=== PATIENT | female | born 1955 | race Caucasian/White ===

== ENCOUNTER 2020-03-18 21:55 | Observation (INO) | payer MEDICAID, SELFPAY ==
[2020-03-18 21:47] VITALS: BMI 30.7
--- NOTE | 2020-03-18 21:50 | ECG_ITS ---
APPROVED REPORT Exam: Resting ECG HR:78 bpm ECG Measurements Heart Rate 78 AXES OK 166 P 72 QRSd 88 QRS 23 QT 422 T 67 QTc 481 <Conclusion> Normal sinus rhythm Normal ECG Electronically signed by : Keith Ojeda, 03/21/2020 14:08:08
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
[2020-03-18 21:59] VITALS: BP 142/84; PULSE 88; RESP 16; TEMP 36.6; O2SAT 98
--- NOTE | 2020-03-18 22:04 | PC.NURSE ---
Pt to CT at this time. MD at the bedside pt upon arrival.
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
[2020-03-18 22:28] LABS: Basophils # 0.1 K/mm3 (0-0.2); Basophils % 0.6 % (0.1-2.0); Eosinophils # 0.1 K/mm3 (0.0-0.4); Eosinophils % 0.6 % (0.1-12.0); Hematocrit 36.3 % (37.0-47.0); Hemoglobin 12.4 g/dL (12.2-16.2); Lymphocytes # 1.2 K/mm3 (0.7-4.5); Lymphocytes % 15.1 % (10-50); Mean Corpuscular HGB Conc 34.1 g/dL (31.8-35.4); Mean Corpuscular Hemoglobin 30.5 pg (27.0-31.2); Mean Corpuscular Volume 89.6 fl (81-99); Mean Platelet Volume 8.8 fl (7.4-10.4); Monocytes # 0.4 K/mm3 (0.1-1.0); Neutrophils # 6.1 K/mm3 (1.8-7.8); Neutrophils % 78.7 % (37.0-80.0); Platelet Count 131 K/mm3 (142-424); Red Blood Count 4.06 M/mm3 (4.20-5.40); Red Cell Distribution Width 13.2 % (11.5-17.5); White Blood Count 7.8 K/mm3 (4.8-10.8)
[2020-03-18 22:30] VITALS: BP 139/74; PULSE 80; RESP 16; O2SAT 97
[2020-03-18 22:32] LABS: Alanine Aminotransferase 131 U/L (12-78); Albumin Level 3.7 g/dl (3.5-5.0); Alkaline Phosphatase 83 U/L (38-126); Amylase 56 U/L (30-110); Anion Gap 12.2 mEq/L (5-15); Aspartate Amino Transferase 235 U/L (14-36); Bilirubin,Direct 0.1 mg/dl (0.0-0.4); Bilirubin,Indirect 0.4 mg/dL (0.0-0.9); Bilirubin,Total 0.5 mg/dl (0.2-1.3); Bilirubin,Unconjugated 0.4 mg/dL (0.0-1.1); Blood Urea Nitrogen 23 mg/dl (7-17); Calcium 9.1 mg/dl (8.4-10.2); Carbon Dioxide 21 mmol/L (22.0-30.0); Chloride 107 mmol/L (98-107); Creatinine Clearance Estimated 75 mL/min (50-200); Estimated Glomerular Filt Rate 63 ml/min (>60); GFR (African American) 76 ML/MIN (>60); Glucose 274 mg/dl (74-100); Lipase 79 U/L (23-300); Potassium 4.2 mmoL/L (3.5-5.1); Sodium 136 mmol/L (136-145); Total Protein,Serum 6.9 g/dl (6.3-8.2)
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
[2020-03-18 22:45] VITALS: BP 132/72; PULSE 80; RESP 16; O2SAT 99
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
--- NOTE | 2020-03-18 22:59 | PC.NURSE ---
speaking to alberto
[2020-03-18 23:01] VITALS: BP 125/68; PULSE 82; RESP 20; O2SAT 100
--- NOTE | 2020-03-18 23:03 | PC.NURSE ---
pt return from ct. 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
--- NOTE | 2020-03-18 23:03 | PC.NURSE ---
pt back from xr
--- NOTE | 2020-03-18 23:25 | PC.NURSE ---
pt voided per bedpan.dark yellow urine
[2020-03-18 23:34] VITALS: BP 145/78; PULSE 77; RESP 18; O2SAT 98
[2020-03-18 23:53] VITALS: BP 161/88; PULSE 75; RESP 18; TEMP 36.6; O2SAT 98
[2020-03-19] VITALS: BP 146/70; PULSE 66; RESP 16; TEMP 36.6; O2SAT 99; BMI 25.0
--- NOTE | 2020-03-19 00:12 | PC.NURSE ---
PT ARRIVED TO THE FLOOR VIA W/C FROM ED @ 0012.
[2020-03-19 04:00] VITALS: BP 126/73; PULSE 67; RESP 16; TEMP 36.7; O2SAT 98
--- NOTE | 2020-03-19 04:10 | PC.NURSE ---
A&O X4. PT C/O MODERATE PAIN TO RIGHT ELBOW AND RIGHT HIP, RATING PAIN AT MOST A 9/10 ON PAIN SCALE THIS SHIFT. ADMINISTERED MORPHINE X1 PER MAR THUS FAR AND TYLENOL X1 FOR PAIN RELIEF. WITH MEDICATION ADMIN PT VERBALIZES ADEQUATE PAIN RELIEF. MULTIPLE ABRASIONS AND LACERATIONS NOTED TO BODY, PICTURES ON CHART. CONSENT SIGNED BY PT PRIOR TO OBTAINING PICTURES. PT ABLE TO INDEPENDENTLY AMB TO AND FROM BATHROOM. THIS RN ENCOURAGED USE OF STAFF STANDBY ASSIST FOR AMBULATION. TOLERATES AMBULATION WELL. PT TOLERATING RA WELL WITH NO C/O SOA. PT STATES WITH DEEP BREATHING PAIN IS NOTED ON RIGHT SIDE FLANK REGION. BILATERAL BREATH SOUNDS NOTED CLEAR T/O. CONTINUOUS PULSE OX MONITORING THIS SHIFT. O2 RANGE NOTED BETWEEN 98-100% RA. NO EDEMA NOTED. VSS. REMAINS SAFE. CALL LIGHT WITHIN REACH. WILL CONTINUE TO MONITOR. PT UNABLE TO PROVIDE ACCURATE DAILY MEDICATIONS LIST FOR MED REC UPON ADMISSION. PT STATES HER CAN BE CALLED AROUND 6 AM AND HE WILL BE ABLE TO PROVIDE A LIST OF HER DAILY MEDICATIONS FOR THIS RN. PT STATES SHE TAKES THREE DAILY: ONE FOR THYROID, ONE FOR SUGAR, AND ONE FOR B/P .
[2020-03-19 04:15] LABS: Microscopic, Urine URINE MICROSCOPIC (MICROSCOPIC)
[2020-03-19 04:25] LABS: Appearance,Urine CLEAR (Clear); Bilirubin,Urine Negative (Negative); Blood, Urine TRACE-L (Negative); Color,Urine YELLOW (Yellow); Glucose,Urine (UA) 1+ (Negative); Ketones,Urine Negative (Negative); Leukocyte Esterase,Urine Negative (Negative); Nitrate,Urine Negative (Negative); PH,Urine 5.5 (5.0-8.5); Protein,Urine Negative (Negative); Specific Gravity, Urine 1.015 (1.005-1.030); Urobilinogen,Urine 0.2 EU/dl (0.2)
[2020-03-19 04:28] LABS: WBC,Urine Occasional #/hpf (0-3)
[2020-03-19 05:53] LABS: POC Glucose,Bedside 220 (70-110)
--- NOTE | 2020-03-19 06:11 | PC.NURSE ---
WAS ABLE TO PROVIDE PT'S DAILY MEDICATION NAMES AND DOSAGES VIA TELEPHONE THIS AM WITH THIS RN. MED REC COMPLETE.
--- NOTE | 2020-03-19 07:00 | XR_ITS ---
PROCEDURE: XR CHEST PORTABLE CLINICAL HISTORY: pxt COMPARISON: CT ANGIO CHEST from 03/18/2020 XR CHEST PORTABLE from 03/18/2020 FINDINGS: The cardiomediastinal silhouette and pulmonary vascularity are within normal limits. There is persistent ill-defined opacity at the left costophrenic angle likely representing atelectasis. Otherwise both lung reina are clear of infiltrate. There is no visible pneumothorax, the pneumothorax seen on the CC scan was extremely tiny and likely below resolution on standard chest film. No acute bony abnormalities. IMPRESSION: Persistent ill-defined opacity left costophrenic angle likely representing postinflammatory scarring and or atelectasis otherwise unremarkable chest Dictated by: Dr. David Leblanc MD 03/19/2020 13:[address] David Leblanc MD in [place] 03/19/2020 13:57
[2020-03-19 07:17] VITALS: BP 118/74; PULSE 60; RESP 18; TEMP 36.6; O2SAT 97
[2020-03-19 07:37] LABS: Chloride 113 mmol/L (98-107); Sodium 139 mmol/L (136-145)
[2020-03-19 07:38] LABS: Potassium 4.2 mmoL/L (3.5-5.1)
[2020-03-19 07:40] LABS: Alanine Aminotransferase 130 U/L (12-78); Alkaline Phosphatase 74 U/L (38-126); Anion Gap 9.2 mEq/L (5-15); Aspartate Amino Transferase 156 U/L (14-36); Bilirubin,Total 0.7 mg/dl (0.2-1.3); Blood Urea Nitrogen 16 mg/dl (7-17); Carbon Dioxide 21 mmol/L (22.0-30.0); Creatinine Clearance Estimated 61 mL/min (50-200); Estimated Glomerular Filt Rate 72 ml/min (>60); GFR (African American) 87 ML/MIN (>60)
[2020-03-19 07:41] LABS: Albumin Level 3.6 g/dl (3.5-5.0); Albumin/Globulin Ratio 1.2 (1.1-1.8); Glucose 206 mg/dl (74-100); Total Protein,Serum 6.6 g/dl (6.3-8.2)
[2020-03-19 07:48] LABS: Calcium 8.1 mg/dl (8.4-10.2)
--- NOTE | 2020-03-19 09:16 | P.CONPHA_ITS ---
[facility] Pharmacy VTE Monitoring - Patient Demographics Admission date: 03/19/20 Report Date: 03/19/20 Time: 09:16 Allergies/Adverse Reactions: Patient Allergies No Known Allergies Allergy (Verified 03/18/20 21:50) Height: 1.65 m Weight: 68.039 kg Patient Problems: Current Active Problems Ribs, multiple fractures (Acute) Pneumothorax on right (Acute) Concussion (Acute) Acute cervical myofascial strain (Acute) Right ankle injury (Acute) Diabetes mellitus (Acute) Hypothyroidism (acquired) (Acute) - VTE Risk Labs: VTE Related Lab Results Hgb 12.4 g/dL (12.2-16.2) 03/18/20 21:57 Hct 36.3 % (37.0-47.0) L 03/18/20 21:57 Plt Count 131 K/mm3 (142-424) L 03/18/20 21:57 BUN 16 mg/dl (7-17) D 03/19/20 07:23 Creatinine 0.80 mg/dl (0.52-1.04) 03/19/20 07:23 Estimated Creat Clear 61 mL/min (50-200) 03/19/20 07:23 Was VTE Risk Assessment Performed: Yes VTE Score: 3 VTE Risk Level: Low Risk - Prophylaxis VTE Prophylaxis Ordered?: Yes Types of VTE Prophylaxis: TEDS Knee High Location of Applied Device: Bilateral Lower Extremeties
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
[2020-04-28 09:43] LABS: POC Glucose,Bedside 263 (70-110)
== END 2020-03-19 10:24 | disposition home or self-care (01) ==
LOC: ER 22:18 → 2ND 23:25
PROVIDERS: Admitting Provider Surgery; Emergency Provider Emergency Medicine; Visit Provider Surgery
DX: S27.0XXA Traumatic pneumothorax, initial encounter (principal); S22.41XA Multiple fractures of ribs, right side, initial encounter for closed fracture; V86.95XA Unspecified occupant of 3- or 4- wheeled all-terrain vehicle (ATV) injured in nontraffic accident, initial encounter; E11.9 Type 2 diabetes mellitus without complications; E03.9 Hypothyroidism, unspecified; S06.0X9A Concussion with loss of consciousness of unspecified duration, initial encounter; R40.2422 Glasgow coma scale score 9-12, at arrival to emergency department; S13.4XXA Sprain of ligaments of cervical spine, initial encounter; S99.911A Unspecified injury of right ankle, initial encounter
CPT/HCPCS: 36415; 70450; 70486; 71045; 71275; 72125; 72170; 73610; 73630; 74177; 80048; 80053; 80076; 81001; 82150; 82962; 83690; 85025; 93005; 96365; 96366; 99284; G0378; J2405; Q9967

== ENCOUNTER → 2020-03-22 11:36 | Outpatient (CLI) | payer MEDICAID, SELFPAY ==
--- NOTE | 2020-03-22 11:47 | XR_ITS ---
PROCEDURE: XR CHEST 2V CLINICAL HISTORY: pneumothorax COMPARISON: CT ANGIO CHEST from 03/18/2020 XR CHEST PORTABLE from 03/18/2020 XR CHEST PORTABLE from 03/19/2020 FINDINGS: Since the last examination the left lung field is now clear. There is no pneumothorax. There are no other significant interval changes. IMPRESSION: Clear lung reina Dictated by: Sterling Cano 03/22/2020 12:16 Electronically signed by Sterling Cano in [place] 03/22/2020 12:16
== END ==
PROVIDERS: PCP Family Medicine; Visit Provider Surgery
DX: J93.9 Pneumothorax, unspecified (principal)
CPT/HCPCS: 71046